=== PATIENT | male | born 1950 | race Two or more races ===

== ENCOUNTER → 2020-11-21 | Outpatient (CLI) | payer OTHER ==
[~2020-11-21] MED LIST: IOHEXOL 240 MG/ML 50ML VIAL. PO ONE; IOHEXOL 300 MG/ML 100ML VIAL. IV ONE
--- NOTE | 2020-11-21 12:46 | RAD ---
EXAM: Abdomen and pelvis CT with intravenous contrast. HISTORY: Right lower quadrant pain. TECHNIQUE: Computed tomographic images of the abdomen and pelvis were obtained following the administ ration of intravenous contrast. Multiplanar reformatting was performed. *One or more of the following individualized dose reduction techniques were utilized for this examina tion: 1. Automated exposure control. 2. Adjustment of the mA and/or kV according to patient size. 3. Use of iterative reconstruction technique. COMPARISON: None. FINDINGS: Evaluation of the lower thorax demonstrates posterior dependent and basilar atelectasis. Th ere is no infiltrate or pleural effusion. There is cardiomegaly. There is a trace pericardial effusio n. No hepatic lesion is seen. The gallbladder, pancreas, spleen and adrenal glands are unremarkable. The re is a proximal duodenal diverticulum. There is no hydronephrosis. There is a small focus of perinep hric stranding along the anterior mid zone of the left kidney. No convincing cyst or solid renal lesi on is seen. The bladder is unremarkable. The prostate is mildly enlarged. There is no appendicitis. There is no bowel obstruction. There is no abnormal bowel wall thickening. The aorta is normal in caliber. There is no lymphadenopathy. There is no suspicious osseous lesion. T here is lumbar scoliosis and hyperlordosis. There is multilevel degenerative change involving the spi ne, primarily at L1-L2. There is associated foraminal and central canal stenosis at multiple levels. IMPRESSION: No convincing acute abdominal or pelvic finding. Electronically signed by: Bernice Montes De Oca MD (11/21/2020 12:44 PM) [id number]
== END ==
LOC: RAD 09:10
DX: K57.10 Diverticulosis of small intestine without perforation or abscess without bleeding (principal)
CPT/HCPCS: 74177